=== PATIENT | female | born 1975 | race African-American/Black ===

== ENCOUNTER 2022-01-18 15:32 | Emergency (ER) | payer SELFPAY ==
[2022-01-18 15:52] VITALS: BP 150/87; PULSE 75; RESP 18; TEMP 98.1; BMI 29.6
[2022-01-18 17:21] LABS: BASO % 0.4 % (0-2.0); EOS % 0.5 % (0-4.5); HEMATOCRIT 35.8 % (32.4-45.2); HEMOGLOBIN 12.3 GM/dL (10.7-15.3); LYMPH % 34.6 % (8-40); MCH 29.7 pg (25.7-33.7); MCHC 34.3 g/dl (32.0-36.0); MEAN CELL VOLUME 86.8 fl (80-96); MEAN PLT VOLUME 8.8 fl (7.5-11.1); NEUT % 57.5 % (42.8-82.8); PLATELET COUNT 244 10^3/uL (134-434); RBC 4.13 M/mm3 (3.60-5.2); RDW 13.5 % (11.6-15.6); WHITE BLOOD COUNT 6.2 K/mm3 (4.0-10.0)
[2022-01-18 17:40] LABS: CALCIUM 8.7 mg/dL (8.5-10.1)
[2022-01-18 17:41] LABS: ALBUMIN 3.6 g/dl (3.4-5.0); BLOOD UREA NITROGEN 11.5 mg/dL (7-18); MAGNESIUM 2.3 mg/dL (1.8-2.4)
[2022-01-18 17:44] LABS: CREATININE 0.7 mg/dL (0.55-1.3)
[2022-01-18 17:46] LABS: BILIRUBIN,TOTAL 0.2 mg/dL (0.2-1); TOT PROT 7.3 g/dl (6.4-8.2)
[2022-01-18] MEDS ORDERED: ACETAMINOPHEN 1000 MG/100 ML BAG IVPB ONE (17:48)
[2022-01-18] MEDS ORDERED: SODIUM CHLORIDE 0.9% 1000 ML INFUS.BAG IV ONE (17:48)
[2022-01-18] MEDS ORDERED: ACETAMINOPHEN INJECTION 100 ML IVPB ONE (18:30)
[2022-01-18 18:34] LABS: PH,URINE 6.5 (5.0-8.0); URINE APPEARANCE CLEAR; URINE BILIRUBIN NEGATIVE (NEGATIVE); URINE COLOR YELLOW; URINE GLUCOSE (UA) NEGATIVE (NEGATIVE); URINE KETONE NEGATIVE (NEGATIVE); URINE LEUK ESTERASE NEGATIVE (NEGATIVE); URINE NITRITE NEGATIVE (NEGATIVE); URINE PROTEIN NEGATIVE (NEGATIVE); URINE UROBILINOGEN 0.2 mg/dL (0.2-1.0)
== END 2022-01-18 19:30 | disposition home or self-care (01) ==
LOC: JER 15:32
PROC: 3E0333Z Introduction of Anti-inflammatory into Peripheral Vein, Percutaneous Approach (ICD-10-PCS; principal; 2022-01-18)
DX: R42 Dizziness and giddiness (principal)
CPT/HCPCS: 36415; 71046-TC-FY; 80053; 81003; 83735; 84484; 84703; 85025; 87086; 93005; 93010; 99285-25